=== PATIENT | female | born 1995 | race African-American/Black ===

== ENCOUNTER 2017-12-21 12:19 | Emergency (ER) | payer SELFPAY, OTHER ==
[2017-12-21 12:44] LABS: Bilirubin Negative (Negative); Blood, Urine Large (Negative); Clarity CLOUDY (Clear); Glucose, Urine (Dipstick) Negative (Negative); Leukocyte Large (Negative); Nitrite Negative (Negative); Protein, Urine (Dipstick) 100 mg/dL (Neg-Trace); Specific Gravity, Urine 1.013 (1.002-1.036); Urobilinogen 0.2 mg/dL (0.2-1.0); pH, Urine 7.5 (5.0-9.0)
[2017-12-21 12:48] LABS: Pregnancy Test - Urine (BHCG) Negative (Negative); Pregu Control Background? CLEAR/WHITE (CLR/WHITE); Pregu Control Bar Appear? YES (CONTROL BAR); Specific Gravity 1.013 (1.002-1.036)
[2017-12-21 12:49] LABS: Bacteria/HPF None Seen HPF (None Seen); Hyaline Casts/LPF 0-3 HYALINE CAST LPF (0-3 Hyaline); Pathc Cast-AUWi Flag 0.14 (0-2.49); RBC/HPF GREATER THAN 50-TNTC HPF (0-3); Squamous Epithelial 0-3 HPF (0-3)
[2017-12-21] MEDS ORDERED: Morphine 4 MG/ML VIAL ONE ×2 (13:02→13:47)
[2017-12-21] MEDS ORDERED: Ondansetron HCl/PF 4 MG/2 ML Vial ONE (13:03)
[2017-12-21 13:39] LABS: #Basophils 0.1 thou/uL (0.0-0.2); #Eosinphils 0.1 thou/uL (0.0-0.7); #Lymphocytes 1.7 thou/uL (1.20-3.40); #Monocytes 0.7 thou/uL (0.11-0.59); #Neutrophils 7.6 thou/uL (1.40-6.50); %Basophils 0.5 % (0.0-1.0); %Eosinophils 0.6 % (0.0-10.0); %Lymphocytes 16.3 % (21.0-51.0); %Monocytes 7.3 % (0.0-10.0); %Neutrophils 75.2 % (42.0-75.0); Hemoglobin 14.6 g/dL (12.0-16.0); Mean Corpuscular HGB CONC 32.8 g/dL (32.0-36.0); Mean Corpuscular Hemoglobin 30.8 pg (27.0-31.0); Mean Corpuscular Volume 94.1 fl (81.0-99.0); Mean Platelet Volume 6.2 fL (7.4-10.4); Platelet Count 490 thou/uL (130-400); RBC Distribution Width 11.9 % (11.5-14.5); Red Blood Cell (RBC) Count 4.75 mill/uL (4.20-5.40); White Blood Cell (WBC) Count 10.1 thou/uL (4.8-10.8)
[2017-12-21 13:46] LABS: ALT (SGPT) 16 U/L (8-55); AST (SGOT) 17 U/L (5-34); Albumin 4.3 g/dL (3.5-5.0); Alkaline Phosphatase 66 U/L (40-150); Anion Gap 13 mmol/L (10-20); BUN (Urea Nitrogen) 12 mg/dL (7.0-18.7); Bilirubin, Total 0.8 mg/dL (0.2-1.2); Calc. Creatinine Clearance 0 mL/min (70-130); Carbon Dioxide 24 mmol/L (22-29); Chloride 106 mmol/L (98-107); Estimated GFR-MDRD Greater than 90; Globulin 2.9 g/dL (2.4-3.5); Glucose 87 mg/dL (70-105); Potassium 4.3 mmol/L (3.5-5.1); Protein, Total 7.2 g/dL (6.0-8.3); Sodium 139 mmol/L (136-145)
[2017-12-21] MEDS ORDERED: Ketorolac Tromethamine 30 MG/ML VIAL ONE (13:47)
[2017-12-21] MEDS ORDERED: Sodium Chloride 0.9% 100 ML ONE (13:49)
[2017-12-21] MEDS ORDERED: cefTRIAXone\\ROCEPHIN 2 GM VIAL ONE (13:49)
--- NOTE | 2017-12-21 13:51 | CT ---
CT ABDOMEN AND PELVIS WITHOUT CONTRAST: Date: 12/21/17 COMPARISON: None. HISTORY: Right-sided flank and abdominal pain. TECHNIQUE: Multiple contiguous axial images were obtained in a CT of the abdomen and pelvis without contrast. Co janet reformats were performed. FINDINGS: There is a punctate 1-2 mm calcification in the lower pole of the right kidney. No hydronephrosis is seen. No obvious calcifications are seen along the course of the ureters, but the ureters are very di fficult to follow as they are not distended. The liver, gallbladder, adrenal glands, spleen, and pancreas are unremarkable, although evaluation is limited on this noncontrast examination. The reproductive organs are unremarkable. The large and small bowel are unremarkable. The osseous structures, visualized inferior thorax, and abdominal wall soft tissues are unremarkable. IMPRESSION: 1. No evidence of acute intra-abdominal/pelvic abnormality. 2. Nonobstructing small right renal calcification. POS: [facility]
== END 2017-12-21 14:48 | disposition home or self-care (01) ==
LOC: ERS 12:19
DX: N12 Tubulo-interstitial nephritis, not specified as acute or chronic (principal); F41.9 Anxiety disorder, unspecified; F17.200 Nicotine dependence, unspecified, uncomplicated
CPT/HCPCS: 74176; 80053; 81003; 81015; 81025; 85025; 87077; 87086; 96361; 96365; 96375; 96376; 99406; J0696; J1885; J2270; J2405; J7050